=== PATIENT | female | born 1930 | race Caucasian/White ===

== ENCOUNTER 2016-08-06 17:23 | Inpatient (IN) | payer OTHER ==
[~2016-08-06] VITALS: Ht 157.5 cm; Wt 82.8 kg
[~2016-08-06 17:23] MED LIST: ALBU1.257 IN; AMIO200T33 PO; ATOR20TA50 PO; DIG0125T PO; DOXY-216 PO; FURO40TA4 PO; GABA-494 PO; IPRASOL39 NEB; LEVO25TA6 PO; LOSA25TA9 PO; MAGN400T5 PO; MECL-87 PO; METO-169 PO; METO25TA3 PO; NOR10T PO; ONDA4TAB5 PO; PANT1INJ3 PO; POT20T PO; WARF2.5T39 PO
[2016-08-06] MEDS ORDERED: IPRATROPIUM BROM 0.5 MG/2.5ML INH SOL NEB ONE (18:00)
[2016-08-06] MEDS ORDERED: ALBUTEROL SULF 2.5 MG/0.5ML(0.5%) NEB SOLN NEB ONE (18:00)
[2016-08-06] MEDS ORDERED: FUROSEMIDE 40 MG/4 ML VIAL IV ONE ×2 (18:45→20:15)
[2016-08-06 18:48] LABS: Albumin 3.2 g/dL (3.4-5.0); BUN/Creatinine Ratio 14.9; Magnesium 2.3 mg/dL (1.6-2.6)
[2016-08-06 18:49] LABS: Lactic Acid w/Reflex 4.6 mmol/L (0.4-2.0)
[2016-08-06 18:50] LABS: REFLEX LACTIC ACID YES OR NO YES
[2016-08-06 18:53] LABS: Bilirubin, Total 2.3 mg/dL (0.2-1.0); Total Protein 7.9 g/dL (6.4-8.2)
[2016-08-06 18:54] LABS: Partial Thromboplastin Time 41.2 sec (22.64-33.71); Prothrombin Time 70.5 sec (9.37-12.3)
[2016-08-06 18:59] LABS: INR 6.53 (0.9-1.15); Potassium 6.1 mmol/L (3.5-5.1)
[2016-08-06 19:07] LABS: Basophils # (auto) 0 uL; Basophils % (auto) 0.3 % (0.0-2.0); DEFINITIVE VIEW TRANSMISSION; Eosinophils # (auto) 0 uL; Eosinophils % (auto) 0.1 % (0.0-7.0); Hematocrit 32.5 % (36.0-46.0); Hemoglobin 10.4 g/dL (12.2-16.2); Lymphocytes # (auto) 1.1 uL; Lymphocytes % (auto) 16.4 % (10.0-50.0); Mean Corpuscular Hemoglobin 25.1 pg (28.0-32.0); Mean Corpuscular Hgb Conc. 31.8 g/dL (32.0-36.0); Mean Corpuscular Volume 78.7 fL (80.0-100.0); Mean Platelet Volume 9.1 fL (7.4-10.4); Monocytes # (auto) 0.8 uL; Neutrophils # (auto) 4.6 uL; Neutrophils % (auto) 71.2 % (37.0-80.0); Platelet Count (auto) 252 10^3/uL (140-450); White Blood Cell 6.5 10^3/uL (4.4-10.8)
[2016-08-06 19:09] LABS: Red Cell Distribution Width 24.8 % (11.6-16.0)
[2016-08-06 19:34] LABS: Temperature: 22.2 C (20.0-25.0)
[2016-08-06] MEDS ORDERED: ALBUTEROL SULF 2.5 MG/0.5ML(0.5%) NEB SOLN NEB STA (20:05)
[2016-08-06] MEDS ORDERED: SODIUM BICARBONATE 8.4% INJ 50ML SYRINGE IV ONE (20:15)
[2016-08-06] MEDS ORDERED: DEXTROSE (50%) 50ML SYRG IV ONE (20:15)
[2016-08-06] MEDS ORDERED: CALCIUM GLUC 4.65 MEQ/10ML 4.65 MEQ in SODIUM CHL 0.9% 50 ML IV ONE (20:15)
[2016-08-06] MEDS ORDERED: ASPirin 81 mg TAB PO ONE (20:15)
[2016-08-06] MEDS ORDERED: InsuLIN REG 1unit/0.01ml Soln (100units/ml) IV ONE (20:15)
[2016-08-06] MEDS ORDERED: CALCIUM GLUC 4.65 MEQ/10ML IV ONE (20:24)
[2016-08-06 20:34] LABS: Urine Bilirubin Negative (Negative); Urine Blood Negative /uL (Negative); Urine Color Yellow (Yellow); Urine Glucose Normal (Normal); Urine Hyaline Cast MOD /lpf (0 - 2); Urine Ketone Negative (Negative); Urine Nitrite Negative (Negative); Urine RBC 2 /hpf (0 - 4); Urine Squamous Epithelial Cell FEW /hpf (<5); Urine pH 5.5 (5.0-8.0)
[2016-08-06] MEDS ORDERED: SODIUM CHLORIDE 0.9% 1,000 ML IV ONE (20:40)
[2016-08-06] MEDS ORDERED: LEVOFLOXACIN 500MG 100 ML IV ONE (20:45)
[2016-08-06] MEDS ORDERED: metroNIDAZOLE 500MG/100ML 100 ML IV ONE (20:45)
[2016-08-06 21:20] LABS: Anisocytosis Slight; Hypochromia Slight; Ovalocytes FEW; Platelet Estimate Adequate
[2016-08-06] MEDS ORDERED: MORPHINE SULF INJ 2 MG/ML SYRINGE 1ML IV PRN (21:30)
[2016-08-06] MEDS ORDERED: NITROGLYCERIN 0.4 MG SL TAB SL PRN (21:30)
[2016-08-06] MEDS: ENOXAPARIN SOD 30 MG/0.3 ML SYRINGE SC SCH (21:33)
[2016-08-06 21:49] LABS: Potassium 5.4 mmol/L (3.5-5.1)
[2016-08-06] MEDS: SODIUM CHLOR 0.9% PF (SALINE LOCK) 10ML VIAL IV SCH (22:35)
[2016-08-06] MEDS: FAMOTIDINE 20 MG TAB PO SCH (22:53)
[2016-08-06] MEDS: ASCORBIC ACID 500 MG TAB PO SCH (22:53)
[2016-08-06] MEDS ORDERED: NOREPINEPHRINE BITARTRATE 250 ML IV ONE (23:45)
[2016-08-07] VITALS (92 sets, daily range): BP systolic 82–140; BP diastolic 32–88
[2016-08-07] MEDS ORDERED: LORazepam 2MG/ML-1ML VIAL IV PRN (00:30)
[2016-08-07 03:56] LABS: Basophils # (auto) 0 uL; DEFINITIVE VIEW TRANSMISSION; Eosinophils # (auto) 0 uL; Eosinophils % (auto) 0.1 % (0.0-7.0); Hemoglobin 10.6 g/dL (12.2-16.2); Lymphocytes # (auto) 0.9 uL; SUSPECT VIEW TRANSMISSION
[2016-08-07 04:02] LABS: Basophils % (auto) 0.4 % (0.0-2.0); Hematocrit 32.7 % (36.0-46.0); Lymphocytes % (auto) 13.4 % (10.0-50.0); Mean Corpuscular Hemoglobin 25.3 pg (28.0-32.0); Mean Corpuscular Hgb Conc. 32.4 g/dL (32.0-36.0); Mean Corpuscular Volume 77.9 fL (80.0-100.0); Mean Platelet Volume 9.4 fL (7.4-10.4); Monocytes # (auto) 0.7 uL; Monocytes % (auto) 10.1 % (0.0-12.0); Neutrophils # (auto) 5.1 uL; Platelet Count (auto) 211 10^3/uL (140-450); White Blood Cell 6.7 10^3/uL (4.4-10.8)
[2016-08-07 04:12] LABS: Red Cell Distribution Width 23.9 % (11.6-16.0)
[2016-08-07 04:45] LABS: Albumin 3.1 g/dL (3.4-5.0); BUN/Creatinine Ratio 14.4; Calcium 9.3 mg/dL (8.5-10.1); Potassium 5.4 mmol/L (3.5-5.1)
[2016-08-07 04:52] LABS: Bilirubin, Total 2.2 mg/dL (0.2-1.0)
[2016-08-07 05:49] LABS: Anisocytosis Slight; Ovalocytes FEW; Platelet Estimate Adequate; Polychromasia Slight
[2016-08-07] MEDS: SODIUM CHLOR 0.9% PF (SALINE LOCK) 10ML VIAL IV SCH ×3 (06:24→21:10)
[2016-08-07] MEDS: NOREPINEPHRINE BITARTRATE 250 ML IV SCH ×2 (08:00)
[2016-08-07] MEDS ORDERED: FUROSEMIDE 40 MG/4 ML VIAL IV ONE (10:00)
[2016-08-07] MEDS: MULTIPLE VITAMIN TAB PO SCH (10:14)
[2016-08-07] MEDS: ASCORBIC ACID 500 MG TAB PO SCH ×2 (10:14→21:50)
[2016-08-07] MEDS: FAMOTIDINE 20 MG TAB PO SCH (10:14)
[2016-08-07] MEDS: ZINC SULFATE 220 MG CAP PO SCH (10:14)
[2016-08-07] MEDS ORDERED: BUMETANIDE (0.25 MG/ML) INJ 10ML IV ONE (10:30)
[2016-08-07] MEDS: ENOXAPARIN SOD 30 MG/0.3 ML SYRINGE SC SCH (17:24)
[2016-08-07 20:41] LABS: Partial Thromboplastin Time 46.1 sec (22.64-33.71)
[2016-08-07 20:59] LABS: Prothrombin Time 85.8 sec (9.37-12.3)
[2016-08-07 21:00] LABS: INR 7.94 (0.9-1.15)
[2016-08-08] VITALS (88 sets, daily range): BP systolic 82–120; BP diastolic 41–86
[2016-08-08 07:17] LABS: Basophils # (auto) 0 uL; Basophils % (auto) 0.1 % (0.0-2.0); DEFINITIVE VIEW TRANSMISSION; Eosinophils # (auto) 0 uL; Hematocrit 31.3 % (36.0-46.0); Hemoglobin 9.9 g/dL (12.2-16.2); Lymphocytes % (auto) 14.8 % (10.0-50.0); Mean Corpuscular Hemoglobin 24.7 pg (28.0-32.0); Mean Corpuscular Hgb Conc. 31.6 g/dL (32.0-36.0); Mean Corpuscular Volume 78.2 fL (80.0-100.0); Mean Platelet Volume 8.5 fL (7.4-10.4); Monocytes # (auto) 0.9 uL; Monocytes % (auto) 13.2 % (0.0-12.0); Neutrophils # (auto) 4.7 uL; Neutrophils % (auto) 71.9 % (37.0-80.0); Platelet Count (auto) 243 10^3/uL (140-450); SUSPECT VIEW TRANSMISSION; White Blood Cell 6.5 10^3/uL (4.4-10.8)
[2016-08-08 07:37] LABS: BUN/Creatinine Ratio 18.1; Calcium 9.3 mg/dL (8.5-10.1); Potassium 4.3 mmol/L (3.5-5.1)
[2016-08-08 07:40] LABS: Partial Thromboplastin Time 47.3 sec (22.64-33.71)
[2016-08-08 07:43] LABS: Prothrombin Time 85.3 sec (9.37-12.3)
[2016-08-08 07:45] LABS: INR 7.9 (0.9-1.15)
[2016-08-08 07:50] LABS: Red Cell Distribution Width 25.8 % (11.6-16.0)
[2016-08-08] MEDS: SODIUM CHLOR 0.9% PF (SALINE LOCK) 10ML VIAL IV SCH ×3 (08:00→22:29)
[2016-08-08 08:27] LABS: Anisocytosis Slight; Hypochromia Slight; Ovalocytes FEW; Platelet Estimate Adequate
[2016-08-08] MEDS ORDERED: BUMETANIDE (0.25 MG/ML) INJ 10ML IV ONE (09:45)
[2016-08-08] MEDS ORDERED: phytonadione 2.5 MG in SODIUM CHL 0.9% 50 ML IV ONE (09:45)
[2016-08-08] MEDS: ZINC SULFATE 220 MG CAP PO SCH (09:57)
[2016-08-08] MEDS: AMIODARONE HCL 200 MG TAB PO SCH ×2 (09:58→22:29)
[2016-08-08] MEDS: CARVEDILOL 3.125 MG TAB PO SCH ×2 (09:58→22:00)
[2016-08-08] MEDS: ASCORBIC ACID 500 MG TAB PO SCH ×2 (09:58→22:29)
[2016-08-08] MEDS: FAMOTIDINE 20 MG TAB PO SCH (09:58)
[2016-08-08] MEDS: MULTIPLE VITAMIN TAB PO SCH (09:58)
[2016-08-08] MEDS ORDERED: VANCOMYCIN 1GM/250ML D5W 250 ML IV ONE (12:00)
[2016-08-08] MEDS ORDERED: VANCOMYCIN PER PHARMACY 0 MG IV SCH (12:00)
[2016-08-08] MEDS ORDERED: LEVOFLOXACIN 500MG 100 ML IV ONE (12:00)
[2016-08-08] MEDS: NOREPINEPHRINE BITARTRATE 250 ML IV SCH (13:15)
[2016-08-09] VITALS (96 sets, daily range): BP systolic 72–116; BP diastolic 32–82
[2016-08-09 04:24] LABS: Basophils # (auto) 0 uL; DEFINITIVE VIEW TRANSMISSION; Eosinophils # (auto) 0 uL; Hematocrit 31.7 % (36.0-46.0); Hemoglobin 10.2 g/dL (12.2-16.2); Lymphocytes # (auto) 0.8 uL; Lymphocytes % (auto) 11.3 % (10.0-50.0); Mean Corpuscular Hemoglobin 25.2 pg (28.0-32.0); Mean Corpuscular Hgb Conc. 32.1 g/dL (32.0-36.0); Mean Corpuscular Volume 78.4 fL (80.0-100.0); Mean Platelet Volume 8.5 fL (7.4-10.4); Monocytes % (auto) 14.2 % (0.0-12.0); Neutrophils # (auto) 5.3 uL; Neutrophils % (auto) 74.5 % (37.0-80.0); Platelet Count (auto) 237 10^3/uL (140-450); SUSPECT VIEW TRANSMISSION; White Blood Cell 7.1 10^3/uL (4.4-10.8)
[2016-08-09 04:39] LABS: Partial Thromboplastin Time 45.1 sec (22.64-33.71)
[2016-08-09 04:45] LABS: Red Cell Distribution Width 25.6 % (11.6-16.0)
[2016-08-09 04:50] LABS: Albumin 2.6 g/dL (3.4-5.0); BUN/Creatinine Ratio 19.4; Calcium 8.4 mg/dL (8.5-10.1); Magnesium 1.9 mg/dL (1.6-2.6)
[2016-08-09 04:52] LABS: Bilirubin, Total 2.5 mg/dL (0.2-1.0)
[2016-08-09 04:53] LABS: Prothrombin Time 35.7 sec (9.37-12.3)
[2016-08-09 04:54] LABS: INR 3.31 (0.9-1.15)
[2016-08-09 06:37] LABS: Anisocytosis Slight; Hypochromia Slight; Ovalocytes FEW; Platelet Estimate Adequate
[2016-08-09] MEDS: ACETAMINOPHEN 325 MG TAB PO PRN ×3 (08:25→20:45)
[2016-08-09] MEDS: POTASSIUM CHL 10% (20 MEQ/15ML) ORAL SOLN PO ONE ×2 (09:15→10:08)
[2016-08-09] MEDS: CARVEDILOL 3.125 MG TAB PO SCH ×3 (10:00→22:00)
[2016-08-09] MEDS: ZINC SULFATE 220 MG CAP PO SCH (10:07)
[2016-08-09] MEDS: AMIODARONE HCL 200 MG TAB PO SCH ×2 (10:08→21:52)
[2016-08-09] MEDS: FAMOTIDINE 20 MG TAB PO SCH (10:08)
[2016-08-09] MEDS: LEVOFLOXACIN 250MG 50 ML IV SCH (10:08)
[2016-08-09] MEDS: ASCORBIC ACID 500 MG TAB PO SCH ×2 (10:08→21:53)
[2016-08-09] MEDS: MULTIPLE VITAMIN TAB PO SCH (10:08)
[2016-08-09] MEDS ORDERED: POTASSIUM CHL 20 Meq TABLET PO ONE (11:00)
[2016-08-09] MEDS: VANCOMYCIN 1GM/250ML D5W 250 ML IV SCH (12:21)
[2016-08-09] MEDS: SODIUM CHLOR 0.9% PF (SALINE LOCK) 10ML VIAL IV SCH ×2 (13:26→22:00)
[2016-08-09] MEDS ORDERED: BUMETANIDE (0.25MG/ML) 4 ML VIAL IV ONE ×2 (14:00→14:15)
[2016-08-09] MEDS: DOCUSATE SOD 100 MG CAP PO SCH ×2 (14:13→21:52)
[2016-08-09] MEDS: TEMAZEPAM 15 MG CAP PO PRN (21:53)
[2016-08-09] MEDS: NOREPINEPHRINE BITARTRATE 250 ML IV SCH (23:45)
[2016-08-10] VITALS (96 sets, daily range): BP systolic 71–118; BP diastolic 32–89
[2016-08-10 04:03] LABS: BUN/Creatinine Ratio 19.6
[2016-08-10 04:07] LABS: Potassium 2.5 mmol/L (3.5-5.1)
[2016-08-10 04:25] LABS: Partial Thromboplastin Time 39.4 sec (22.64-33.71)
[2016-08-10 04:27] LABS: Prothrombin Time 24.1 sec (9.37-12.3)
[2016-08-10 04:28] LABS: INR 2.23 (0.9-1.15)
[2016-08-10] MEDS ORDERED: POTASSIUM CHL 10% (20 MEQ/15ML) ORAL SOLN PO ONE (04:30)
[2016-08-10] MEDS: SODIUM CHLOR 0.9% PF (SALINE LOCK) 10ML VIAL IV SCH ×3 (06:00→21:37)
[2016-08-10] MEDS ORDERED: POTASSIUM CHL 20 Meq TABLET PO ONE (06:30)
[2016-08-10] MEDS: ACETAMINOPHEN 325 MG TAB PO PRN ×2 (07:05→21:39)
[2016-08-10] MEDS: LEVOFLOXACIN 250MG 50 ML IV SCH (09:54)
[2016-08-10] MEDS: FAMOTIDINE 20 MG TAB PO SCH (09:55)
[2016-08-10] MEDS: MULTIPLE VITAMIN TAB PO SCH (09:55)
[2016-08-10] MEDS: ASCORBIC ACID 500 MG TAB PO SCH ×2 (09:55→21:37)
[2016-08-10] MEDS: CARVEDILOL 3.125 MG TAB PO SCH ×2 (09:55→21:39)
[2016-08-10] MEDS: AMIODARONE HCL 200 MG TAB PO SCH ×2 (09:55→21:38)
[2016-08-10] MEDS: ZINC SULFATE 220 MG CAP PO SCH (09:55)
[2016-08-10] MEDS: DOCUSATE SOD 100 MG CAP PO SCH ×2 (09:55→21:37)
[2016-08-10] MEDS: VANCOMYCIN 1GM/250ML D5W 250 ML IV SCH (11:01)
[2016-08-10] MEDS: ONDANSETRON HCL 4 MG/2 ML VIAL IV PRN ×2 (11:25→22:19)
[2016-08-10] MEDS ORDERED: LACTULOSE 20Gm/30ML SOLN PO ONE (13:00)
[2016-08-10] MEDS: MIDODRINE HCL 10 MG TAB PO SCH ×2 (13:43→21:38)
[2016-08-10] MEDS ORDERED: ALPRAZolam 0.25 MG TAB PO PRN (20:30)
[2016-08-10] MEDS ORDERED: ALBUTEROL SULF 2.5 MG/0.5ML(0.5%) NEB SOLN NEB PRN (20:30)
[2016-08-10] MEDS ORDERED: IPRATROPIUM BROM 0.5 MG/2.5ML INH SOL NEB PRN (20:30)
[2016-08-10] MEDS: IPRATROPIUM BROM 0.5 MG/2.5ML INH SOL NEB SCH (20:40)
[2016-08-10] MEDS: ALBUTEROL SULF 2.5 MG/0.5ML(0.5%) NEB SOLN NEB SCH (20:40)
[2016-08-10] MEDS: TEMAZEPAM 15 MG CAP PO PRN (21:38)
[2016-08-11] VITALS (48 sets, daily range): BP systolic 76–98; BP diastolic 33–74
[2016-08-11] MEDS: NOREPINEPHRINE BITARTRATE 250 ML IV SCH (05:00)
[2016-08-11] MEDS: SODIUM CHLOR 0.9% PF (SALINE LOCK) 10ML VIAL IV SCH ×2 (06:12→13:23)
[2016-08-11] MEDS: MIDODRINE HCL 10 MG TAB PO SCH ×2 (06:13→13:31)
[2016-08-11] MEDS: IPRATROPIUM BROM 0.5 MG/2.5ML INH SOL NEB SCH ×2 (06:44→12:32)
[2016-08-11] MEDS: ALBUTEROL SULF 2.5 MG/0.5ML(0.5%) NEB SOLN NEB SCH ×2 (06:44→12:32)
[2016-08-11 08:02] LABS: Basophils # (auto) 0 uL; Basophils % (auto) 0.3 % (0.0-2.0); DEFINITIVE VIEW TRANSMISSION; Eosinophils # (auto) 0 uL; Hematocrit 35.5 % (36.0-46.0); Hemoglobin 11.1 g/dL (12.2-16.2); Lymphocytes # (auto) 1.4 uL; Lymphocytes % (auto) 15.6 % (10.0-50.0); Mean Corpuscular Hemoglobin 24.6 pg (28.0-32.0); Mean Corpuscular Hgb Conc. 31.3 g/dL (32.0-36.0); Mean Corpuscular Volume 78.7 fL (80.0-100.0); Mean Platelet Volume 8.8 fL (7.4-10.4); Monocytes # (auto) 1.6 uL; Monocytes % (auto) 17.3 % (0.0-12.0); Neutrophils % (auto) 66.8 % (37.0-80.0); Platelet Count (auto) 224 10^3/uL (140-450); SUSPECT VIEW TRANSMISSION
[2016-08-11 08:09] LABS: Anisocytosis Slight; Hypochromia Slight; Microcytosis Slight; Ovalocytes FEW; Platelet Estimate Adequate; Red Cell Distribution Width 26.3 % (11.6-16.0)
[2016-08-11 08:20] LABS: Partial Thromboplastin Time 33.9 sec (22.64-33.71)
[2016-08-11 08:39] LABS: INR 1.73 (0.9-1.15); Prothrombin Time 18.7 sec (9.37-12.3)
[2016-08-11 08:41] LABS: Calcium 7.7 mg/dL (8.5-10.1); Potassium 3.1 mmol/L (3.5-5.1)
[2016-08-11] MEDS ORDERED: FUROSEMIDE 20 MG TAB PO ONE (11:00)
[2016-08-11] MEDS: LEVOFLOXACIN 250MG 50 ML IV SCH (11:00)
[2016-08-11] MEDS ORDERED: POTASSIUM CHL 20 Meq TABLET PO ONE (11:00)
[2016-08-11] MEDS: CARVEDILOL 3.125 MG TAB PO SCH (11:08)
[2016-08-11] MEDS ORDERED: FLEET ENEMA(ADULT) 135 ML PR ONE ×3 (11:15→11:35)
[2016-08-11] MEDS: AMIODARONE HCL 200 MG TAB PO SCH (11:30)
[2016-08-11] MEDS: MULTIPLE VITAMIN TAB PO SCH (11:30)
[2016-08-11] MEDS: DOCUSATE SOD 100 MG CAP PO SCH (11:30)
[2016-08-11] MEDS: FAMOTIDINE 20 MG TAB PO SCH (11:30)
[2016-08-11] MEDS: VANCOMYCIN 1GM/250ML D5W 250 ML IV SCH (11:30)
[2016-08-11] MEDS: ZINC SULFATE 220 MG CAP PO SCH (11:30)
[2016-08-11] MEDS: ASCORBIC ACID 500 MG TAB PO SCH (11:30)
[2016-08-11] MEDS ORDERED: LACTULOSE 20Gm/30ML SOLN PO PRN (13:00)
== END 2016-08-11 17:00 | disposition hospice, home (50) | DRG 871 ==
LOC: EDBD 17:23 → ER 17:23 → TELE 17:24 → ICU WEST 17:25
PROVIDERS: ADMIT Emergency Medicine; ATTEND Internal Medicine Geriatric Medicine
PROC: 02HV33Z Insertion of Infusion Device into Superior Vena Cava, Percutaneous Approach (ICD-10-PCS; principal; 2016-08-07)
DX: A41.9 Sepsis, unspecified organism (principal); J18.9 Pneumonia, unspecified organism; J96.21 Acute and chronic respiratory failure with hypoxia; R65.21 Severe sepsis with septic shock; I13.0 Hypertensive heart and chronic kidney disease with heart failure and stage 1 through stage 4 chronic kidney disease, or unspecified chronic kidney disease; J44.0 Chronic obstructive pulmonary disease with (acute) lower respiratory infection; L03.115 Cellulitis of right lower limb; E78.00 Pure hypercholesterolemia, unspecified; I50.9 Heart failure, unspecified; J45.909 Unspecified asthma, uncomplicated; N18.9 Chronic kidney disease, unspecified; E66.9 Obesity, unspecified; Z68.33 Body mass index [BMI] 33.0-33.9, adult; E78.5 Hyperlipidemia, unspecified; E87.5 Hyperkalemia; E87.6 Hypokalemia; I07.1 Rheumatic tricuspid insufficiency; I27.2 Other secondary pulmonary hypertension; I34.0 Nonrheumatic mitral (valve) insufficiency; I35.0 Nonrheumatic aortic (valve) stenosis; I48.2 Chronic atrial fibrillation; I70.0 Atherosclerosis of aorta; M19.90 Unspecified osteoarthritis, unspecified site; F41.9 Anxiety disorder, unspecified; T45.515A Adverse effect of anticoagulants, initial encounter; B96.89 Other specified bacterial agents as the cause of diseases classified elsewhere; B95.7 Other staphylococcus as the cause of diseases classified elsewhere; K59.00 Constipation, unspecified; Z51.5 Encounter for palliative care; Z80.8 Family history of malignant neoplasm of other organs or systems; Z87.891 Personal history of nicotine dependence; Y92.89 Other specified places as the place of occurrence of the external cause; Z90.710 Acquired absence of both cervix and uterus; Z88.0 Allergy status to penicillin; Z88.2 Allergy status to sulfonamides
CPT/HCPCS: 36415; 36600; 51702; 70450; 71010; 80048; 80053; 80202; 81001; 82805; 82962; 83605; 83735; 83880; 84132; 84484; 85025; 85610; 85730; 87040; 87077; 87081; 87186; 93005; 93306; 93970; 94640; 96365; 96367; 96375; J1815; J1956; J2405; J3430